=== PATIENT | male | born 1985 | race Native Hawaiian/Other Pacific Islander ===

== ENCOUNTER 2021-02-27 17:37 | Emergency (ER) | payer OTHER ==
[~2021-02-27] VITALS: Ht 190.5 cm; Wt 102.1 kg
[2021-02-27 18:23] LABS: PLATELET COUNT 304 K/uL (142-355)
[2021-02-27 18:44] LABS: POTASSIUM 3.9 mmol/L (3.6-5.2); SODIUM 142 mmol/L (136-145)
[2021-02-27 20:20] VITALS: BP 144/89; TEMP 98.3
== END 2021-02-27 20:20 | disposition home or self-care (01) ==
LOC: ED 17:37
PROVIDERS: Emergency Medicine Emergency Medical Services
DX: S29.011A Strain of muscle and tendon of front wall of thorax, initial encounter (principal); X58.XXXA Exposure to other specified factors, initial encounter; Y92.89 Other specified places as the place of occurrence of the external cause
CPT/HCPCS: 36415; 80053; 84484; 85027; 85379; 93005; 99283